=== PATIENT | male | born 1945 | race Caucasian/White ===

== ENCOUNTER 2016-09-20 12:53 | Emergency (ER) | payer MEDICARE, BC ==
[~2016-09-20 12:53] MED LIST: ASA325 MG PO; COLACE-DPS100 MG PO; COMBIVENT RESPIM4 GM IH; FLOMAX DPS0.4 MG PO; KLOR-CON M2020 ME1 PO; LASIX DPS40 MG PO; MOTRIN IB200 MG PO; NEURONTIN100 MG PO; NORCO 5-325 TA1 EACH PO; NOVOLIN 70100 UNITS/ SQ; SLO-BID DPS300 MG PO; THERA1 EACH PO; VERAPAMIL ER240 MG PO; ZESTRIL DPS20 MG PO; ZYLOPRIM-DPS300 MG PO
--- NOTE | 2016-10-01 16:41 | ER ---
ADMIT: 09/20/2016 RM/LOC: ER [facility] MR#: [id number] [address] [id number] [address] [place] [address] Emergency Room Report SEX: M AGE: 70 : 1945 DATE: 09/20/2016 This 70-year-old gentleman with back pain for the past [address] Mejia for same. 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 He comes in with increasing pain. There is no injury. See T-sheet for history and physical. The patient is diagnosed with exacerbation of chronic back pain. He is given morphine in the Emergency Department, prescription for [place]. Instructed to follow up with Dr. Mejia this week and inquire about Celebrex or some other nonsteroidal for pain control. Mio Parks MD/ juan JOB #: [id number] CC: Emiliano Sales MD, Attending Physician
== END 2016-09-20 14:30 | disposition home or self-care (01) ==
LOC: ER 12:53
DX: G89.29 Other chronic pain (principal); M54.5 Low back pain; J45.909 Unspecified asthma, uncomplicated; I10 Essential (primary) hypertension; E11.9 Type 2 diabetes mellitus without complications; Z79.4 Long term (current) use of insulin; Z79.899 Other long term (current) drug therapy; Z98.890 Other specified postprocedural states